=== PATIENT | female | born 1950 | race Caucasian/White ===

== ENCOUNTER 2023-06-24 14:40 | Outpatient (CLI) | payer MEDICARE | END 2023-06-24 14:41 | disposition home or self-care (01) | LOC: CSHULT 14:40 | PROVIDERS: ATTEND Psychiatry & Neurology Neurology | DX: R93.89 Abnormal findings on diagnostic imaging of other specified body structures (principal) | CPT/HCPCS: 76536 ==

== ENCOUNTER 2024-03-22 08:24 | Outpatient (CLI) | payer MEDICARE ==
[2024-03-22] MEDS ORDERED: Iopamidol 370 76% 100 ML VIAL ONE (14:39)
== END 2024-03-22 08:25 | disposition home or self-care (01) ==
LOC: CSHCT 08:24
PROVIDERS: ATTEND Neurological Surgery
DX: I67.1 Cerebral aneurysm, nonruptured (principal)
CPT/HCPCS: 70496; 82565; Q9967

== ENCOUNTER 2024-07-06 09:56 | Outpatient (CLI) | payer MEDICARE | END 2024-07-06 09:57 | disposition home or self-care (01) | LOC: CSHULT 09:56 | PROVIDERS: ATTEND Otolaryngology Plastic Surgery within the Head & Neck | DX: E04.1 Nontoxic single thyroid nodule (principal) | CPT/HCPCS: 76536 ==